=== PATIENT | male | born 1960 | race Caucasian/White ===

== ENCOUNTER 2017-03-11 04:59 | Emergency (ER) | payer MEDICARE ==
[~2017-03-11] VITALS: Ht 177.8 cm; Wt 72.0 kg
[~2017-03-11 04:59] MED LIST: ASPI81TA2 PO; FLUT16SP12 NS; ISOS30TA6 PO; NITR0.4T PO
--- OUTSIDE RECORDS SUMMARY | 2017-03-11 05:03 | XMS REPORT | Continuity of Care Document ---
Author Author [facility] Organization [facility] Address Unknown Phone Unavailable Support Name Relationship Address Phone ANNIEHCRIS VALLE Caregiver [facility] [address] [place] [address] CHRISTIAN DE JESUS MD Caregiver [facility] [address] [place] [address] [address] [place] [address] NIECY PEÑA Next Of Kin [address] [place], [place] [id number] Insurance Providers Payer Name Policy Number Subscriber Name Relationship Medicare [id number] Fred Peña 18 Self Medicaid [id number] Fred Peña 18 Self Advance Directives Directive Response Recorded Date/Time Advanced Directives Type None 12/23/14 1:45pm Problems Medical Problems Problem Onset Date Status Weakness Unknown Active Chest discomfort Unknown Active Diarrhea Unknown Active Gastroenteritis Unknown Active Atypical chest pain Unknown Active Diarrhea Unknown Active Diarrhea Unknown Active Costochondritis Unknown Active Medications Medication Dose Route Sig Days/Qty Instructions Order Date Discontinued Date Status Cyclobenzaprine Hcl 1 06/06/09 09/21/09 Discontinued Meloxicam 15 Mg PO DAILY 06/12/09 09/21/09 Discontinued Oxycodone Hcl 5 Mg PO NEEDED 06/12/09 09/21/09 Discontinued Fluticasone Propionate 16 Gm NS TWICE A DAY 01/16/14 Active Fexofenadine Hcl 180 Mg PO DAILY PRN ALLERY SYMPTOMS 01/16/14 Active Naproxen Sodium 220 Mg PO TWICE DAILY WITH MEALS PRN PAIN 11/27/14 Active Metronidazole 500 Mg PO Q6H/0300,0900,1500,2100 For diarrhea 7 Days 11/08 Active Ibuprofen 1 Tab PO EVERY 6-8 HOURS PRN PAIN 20 Qty 12/23/14 Active Ondansetron 4 Mg PO EVERY 4-6 HOURS For NAUSEA 20 Qty 12/23/14 Active Social History Social History Problem Response Recorded Date/Time Hx Substance Use N RECOVERING NARCOTIC ADDICT 12/23/2014 1:45pm Hx Alcohol Use N RECOVERING ALCOHOLIC 12/23/2014 1:45pm Has the pt used tobacco in the last 12 months No 11/27/2014 2:33pm Tobacco Usage none 01/16/2014 10:37pm Query Response Start Date Stop Date Smoking Status Former smoker Hospital Discharge Instructions No hospital discharge instructions. Plan of Care No plan of care. Functional Status Query Response Date Recorded Physical Hygiene Self December 23, 2014 1:45pm Disabilities None December 23, 2014 1:45pm Devices Used None December 23, 2014 1:45pm Dressing Self December 23, 2014 1:45pm Ambulation Self December 23, 2014 1:45pm Diet Self December 23, 2014 1:45pm Mental Status Alert Oriented December 23, 2014 1:45pm Disabilities None December 23, 2014 1:45pm Devices Used None December 23, 2014 1:45pm Physical Hygiene Self December 23, 2014 1:45pm Dressing Self December 23, 2014 1:45pm Ambulation Self December 23, 2014 1:45pm Diet Self December 23, 2014 1:45pm Allergies, Adverse Reactions, Alerts Allergen Type Severity Reaction Status Last Updated oxycodone HCl Allergy Unknown HALLUCINATIONS Active 12/23/14 Iodinated Contrast Media - IV Dye Allergy Mild RASH Active 12/23/14 Codeine Allergy Intermediate HALLUCINATION Active 12/23/14 Hydrocodone Allergy Intermediate HALLUCINATION Active 12/23/14 Oxycodone Allergy Unknown Active 12/23/14 Acetaminophen Allergy Intermediate HALLUCINATION Active 12/23/14 Latex Allergy Mild RASH Active 12/23/14 Immunizations Name Given Type Hx Influenza Vaccination N PT DOES NOT WANT ONE Historical Hx Pneumococcal Vaccination No Historical Hx Influenza Vaccination N PT DOES NOT WANT ONE Historical Vital Signs Acute Vital Signs Vital Response Date/Time Temperature (Fahrenheit) 97.8 deg F (96.8 - 99.1) Temperature (Calculated Celsius) 36.00571 degrees C (36.0 - 37.3) Pulse Rate (adult) 98 bpm (60 - 100) Respiratory Rate 16 breaths/min (10 - 20) O2 Sat by Pulse Oximetry 98 % (90 - 100) Blood Pressure 110/70 mm Hg Height 5 ft 10 in Weight 176 lb Body Mass Index 25.0 kg/m^2 Results Test Source Date Result Interp. Ref. Range Comments Activated Partial Thromboplast Time December 23, 2014 1:43pm 28.4 SEC N 24- 36 Alanine Aminotransferase (ALT/SGPT) December 23, 2014 1:43pm 21 U/L N 21- 72 Albumin December 23, 2014 1:43pm 5.1 G/DL H 3.5-5.0 Albumin/Globulin Ratio December 23, 2014 1:43pm 1.5 RATIO N 1.1-2.2 Alkaline Phosphatase December 23, 2014 1:43pm 78 U/L N 38-126 Anion Gap December 23, 2014 1:43pm 20 MEQ/L H 5-15 Aspartate Amino Transf (AST/SGOT) December 23, 2014 1:43pm 22 U/L N 17-59 BUN/Creatinine Ratio December 23, 2014 1:43pm 20 RATIO N 6-26 Basophils # (Auto) January 16, 2014 10:15pm 0.0 T/MM3 N 0-0.2 Basophils (%) (Auto) January 16, 2014 10:15pm 0.4 % N 0-2 Blood Urea Nitrogen December 23, 2014 1:43pm 18.0 MG/DL N 9-20 C. difficile Toxin B Gene (PCR) December 23, 2014 2:16pm Negative - If Toxin A is clinically indicated, treat accordingly. Calcium Level December 23, 2014 1:43pm 10.4 MG/DL H 8.4-10.2 Calculated Osmolality December 23, 2014 1:43pm 282 MOSM/KG H 261-280 Carbon Dioxide Level December 23, 2014 1:43pm 20 MEQ/L L 22-30 Chemistry Specimen Hemolysis December 23, 2014 4:27pm < 15 0-25 0-25: No Hemolysis.26-70: Slight Hemolysis - can falsely elevate K and Urine Protein. 71-285: Moderate Hemolysis - can falsely elevate K, Troponin I, CA 19-9, PTH, CSF GLucose, and Urine Protein, and can falsely decrease Phenytoin. 286-999: Gross Hemolysis - can falsely elevate K, Troponin I, CA 19-9, PTH, CSF Glucose, and Urine Protine, and can falsely decrease Phenytoin. Recommend specimen recollection. Chloride Level December 23, 2014 1:43pm 105 MEQ/L N 98-107 Cholesterol Level December 18, 2011 2:40am 153 MG/DL N 132-199 Cholesterol/HDL Ratio December 18, 2011 2:40am 3.9 RATIO N 0-5.0 Conjugated Bilirubin December 17, 2011 8:35pm 0.00 MG/DL N 0.00-0.30 Creatine Kinase MB December 18, 2011 2:15pm 0.5 NG/ML N 0-3.4 Creatinine December 23, 2014 1:43pm 0.9 MG/DL N 0.8-1.5 EKG August 07, 2008 4:00am Complete - Eosinophils # (Auto) January 16, 2014 10:15pm 0.2 T/MM3 N 0-0.5 Eosinophils (%) (Auto) January 16, 2014 10:15pm 1.6 % N 0-4 Globulin December 23, 2014 1:43pm 3.4 G/DL N 2.4-3.6 Glomerular Filtration Rate Calc December 23, 2014 1:43pm 88 - Glucose Level December 23, 2014 1:43pm 125 MG/DL H 75-110 HDL Cholesterol Direct December 18, 2011 2:40am 39 MG/DL L 40-60 Hematocrit December 23, 2014 1:43pm 46.3 % N 41-53 Hemoglobin December 23, 2014 1:43pm 16.3 GM/DL N 13.5-17.5 Icterus Index December 23, 2014 1:43pm < 2 0-7 Immature Granulocyte # (Auto) January 16, 2014 10:15pm 0.02 T/MM3 N 0.00- 0.03 Immature Granulocyte % (Auto) January 16, 2014 10:15pm 0.2 % N 0.0-0.5 LDL Cholesterol, Calculated December 18, 2011 2:40am 102.2 N 66-159 Lymphocytes # (Auto) January 16, 2014 10:15pm 2.9 T/MM3 N 1-4.8 Lymphocytes # (Manual) December 23, 2014 1:43pm 0.3 T/MM3 L 1-4.8 Lymphocytes % (Manual) December 23, 2014 1:43pm 2.0 % L 23-45 Lymphocytes (%) (Auto) January 16, 2014 10:15pm 30.6 % N 23-45 Magnesium Level December 17, 2011 8:35pm 2.1 MG/DL N 1.6-2.3 COMMENT USE BLOOD IN LAB Mean Corpuscular Hemoglobin December 23, 2014 1:43pm 32.0 UUG N 26-34 Mean Corpuscular Hemoglobin Concent December 23, 2014 1:43pm 35.2 GM/DL N 31-37 Mean Corpuscular Volume December 23, 2014 1:43pm 90.8 UM3 N 80-100 Mean Platelet Volume December 23, 2014 1:43pm 9.3 UM3 L 9.4-12.4 Monocytes # (Auto) January 16, 2014 10:15pm 0.8 T/MM3 N 0-0.8 Monocytes # (Manual) December 23, 2014 1:43pm 0.2 T/MM3 N 0-0.8 Monocytes % (Manual) December 23, 2014 1:43pm 1.0 % N 0-9.0 Monocytes (%) (Auto) January 16, 2014 10:15pm 8.4 % N 0-9.0 RZ-Grh-I-Type Natriuretic Peptide December 23, 2014 1:43pm 205 PG/ML H 0- 175 Rule in cut points: <50 years old=450; 50-75 years old=900; >75 years old=1800; When utilizing ProBNP rule-in cut points, adjustment for impaired renal function is typically not required. Neutrophils # (Auto) January 16, 2014 10:15pm 5.6 T/MM3 N 1.8-7.7 Neutrophils # (Manual) December 23, 2014 1:43pm 16.0 T/MM3 H 1.8-7.7 Neutrophils % (Manual) December 23, 2014 1:43pm 97.0 % H 33-66 Neutrophils (%) (Auto) January 16, 2014 10:15pm 58.8 % N 33-66 Platelet Count December 23, 2014 1:43pm 325 T/MM3 N 130-400 Potassium Level December 23, 2014 1:43pm 3.9 MEQ/L N 3.6-5 Prothromb Time International Ratio December 23, 2014 1:43pm 1.04 N 0.81- 1.09 THERAPUTIC RANGE=2.00-3.00 FOR ANTI-THROMBOSIS THERAPUTIC RANGE=2.50- 3.50 FOR IMPLANTED VALVE RDW Standard Deviation December 23, 2014 1:43pm 41.9 FL N 36.9-50.2 Red Blood Count December 23, 2014 1:43pm 5.10 M/MM3 N 4.50-5.90 Sodium Level December 23, 2014 1:43pm 145 MEQ/L H 134-144 Stool Occult Blood December 23, 2014 2:16pm Positive - Stool for White Cells December 23, 2014 2:16pm Negative - Has specimen been collected/obtained? Y Thyroid Stimulating Hormone (TSH) December 17, 2011 8:35pm 1.22 MIU/L N 0.47-4.68 COMMENT USE BLOOD IN LAB Total Bilirubin December 23, 2014 1:43pm 0.90 MG/DL N 0.20-1.30 Total Creatine Kinase December 18, 2011 2:15pm 89 U/L N 55-170 Total Protein December 23, 2014 1:43pm 8.5 G/DL H 6.3-8.2 Triglycerides Level December 18, 2011 2:40am 59 MG/DL N 40-160 Troponin I December 23, 2014 4:27pm < 0.012 ng/ml 0-0.12 Turbidity December 23, 2014 1:43pm < 20 0-20 Unconjugated Bilirubin December 17, 2011 8:35pm 0.00 MG/DL N 0.00-1.10 Urinalysis Comment December 23, 2014 2:00pm Microscopic not ind. - Has specimen been collected/obtained? Y Urine Bacteria August 07, 2008 6:50am Trace - COMMENT CULTURE IF INDICATEDHas specimen been collected/obtained? Y Urine Bilirubin December 23, 2014 2:00pm Negative - Has specimen been collected/obtained? Y Urine Blood December 23, 2014 2:00pm Negative - Has specimen been collected/obtained? Y Urine Collection Type December 23, 2014 2:00pm Voided-not cc-midstr - Has specimen been collected/obtained? Y Urine Color December 23, 2014 2:00pm [place] - Has specimen been collected/obtained? Y Urine Glucose (UA) December 23, 2014 2:00pm Negative - Has specimen been collected/obtained? Y Urine Ketones December 23, 2014 2:00pm Negative - Has specimen been collected/obtained? Y Urine Leukocyte Esterase December 23, 2014 2:00pm Negative - Has specimen been collected/obtained? Y Urine Nitrite December 23, 2014 2:00pm Negative - Has specimen been collected/obtained? Y Urine Protein December 23, 2014 2:00pm Negative - Has specimen been collected/obtained? Y Urine RBC August 07, 2008 6:50am 0-1 /HPF - COMMENT CULTURE IF INDICATEDHas specimen been collected/obtained? Y Urine Specific [place] December 23, 2014 2:00pm >=1.030 H - Has specimen been collected/obtained? Y Urine Squamous Epithelial Cells August 07, 2008 6:50am Few - COMMENT CULTURE IF INDICATEDHas specimen been collected/obtained? Y Urine Turbidity December 23, 2014 2:00pm Clear - Has specimen been collected/obtained? Y Urine Urobilinogen December 23, 2014 2:00pm 0.2 EU/DL - Has specimen been collected/obtained? Y Urine WBC August 07, 2008 6:50am 0-1 /HPF - COMMENT CULTURE IF INDICATEDHas specimen been collected/obtained? Y Urine pH December 23, 2014 2:00pm 5.0 - Has specimen been collected/ obtained? Y VLDL Cholesterol December 18, 2011 2:40am 11.8 MG/DL N 0-28 White Blood Count December 23, 2014 1:43pm 16.5 T/MM3 H 4.5-11.0 Shiga Toxin I & II Stool December 23, 2014 2:03pm Gram Stain Knee, Intraoperative Site-Left August 07, 2008 10:02am Name: FRED PEÑA Unit #: [id number] : [id number] Sex: M Loc / Svc: [place] DOS: 12/03/14 Signed Report #: [id number] DIAGNOSTIC IMAGING REPORT TYPE OF EXAM: CHEST, PA & LATERAL Dictated By: JULY COUGHLIN MD INDICATION: ITS.REASON: V72.83 PRE OP V72.5 CHEST 2-VIEWS UPRIGHT (PA & LAT) COMPARISON: None FINDINGS: The lungs are clear without evidence of focal abnormal airspace opacity. There is no pleural effusion or pneumothorax. Probable tiny calcified granulomas overlying the left midlung zone are stable. The heart size, mediastinal contours and pulmonary vascularity are within normal limits. There is no significant skeletal abnormality. IMPRESSION: No acute cardiopulmonary disease. . Procedures Procedure Status Date Provider(s) MRI JOINT UPR EXTREM W/O DYE completed 11/07/14 CHEST X-RAY 2VW FRONTAL&LATL completed 12/03/14 Encounters Encounter Location Date/Time Departed Emergency Room [facility] 12/23/14 1:25pm Registered Clinic [facility] 12/03/14 12:35pm Registered Clinic [facility] 11/07/14 9:22am Recent Diagnosis
[2017-03-11 05:04] VITALS: Ht 177.8 cm; Wt 72.0 kg
--- NOTE | 2017-03-11 05:15 | NUR ---
PROVIDER DR FIELDS IN ROOM TO SEE PT
--- NOTE | 2017-03-11 05:23 | ERPDOC ---
Departure Disposition Decision Date: March 11, 2017 Disposition Decision Time: 09:24 (TRISHA REAGAN MD) Disposition: 01 DISCHARGED HOME, SELF-CARE Impression Impression () Impression: Primary Impression: Atypical chest pain Severity: Moderate (TRISHA REAGAN MD) Condition: Improved Seen By: Physician only (TRISHA REAGAN MD) Referrals: MIRIAN SALMERON DO (Family) Patient Instructions: Chest Pain (ED) Problems/Meds/Labs Reviewed?: Yes Medications reviewed and manag: Yes (TRISHA REAGAN MD) Additional Instructions: Set up an appointment with your editor producer for stress test. If symptoms worsen, please return to the emergency department. Follow up care ordered?: Yes (TRISHA REAGAN MD) HPI - Chest Pain General Chief Complaint: Chest Pain Stated Complaint: CHEST PAIN Time Seen by Provider: 05:45 Source: patient, EMS Exam Limitations: no limitations (FEBRUARYANTONIA DO) Time Seen by Provider: 06:41 (TRISHA REAGAN MD) HPI - Chest Pain Initial Comments 56yo man presented to the ER by EMS for CP. Pt states that he has been trying to sleep unsuccessfully all night. Variably, he states that he woke up (despite not being able to sleep?) with CP or that he noticed that he had CP after he woke up. Pt took nitro x1 without relief of his sx. Had an MN 1yr ago and a heart cath at that time. Sx present since at least 0100 this AM. Occurred At: home Onset/Timing: Rapid Duration: 4-6 hrs Pain/Severity Scale: Now: 8/10, Worst: 10/10 Activities at Onset/Context: rest Location: substernal Quality: pressure Associated Symptoms: nausea/vomiting Chest Pain Radiation: no radiation Nitro Today/Relief: 0.4 mg x 1, 0.4 mg x 2, provided by ED, provided at home Aspirin Treatment Today: 81 mg x 4, provided by ED Prior Chest Pain/Cardiac Simón: cardiac cath Hx of Similar Symptoms: Yes (FEBRUARYANTONIA DO) Allergies: Coded Allergies: acetaminophen (Verified Allergy, Intermediate, HALLUCINATION, 01/27/16) codeine (Verified Allergy, Intermediate, HALLUCINATION, 01/27/16) hydrocodone (Verified Allergy, Intermediate, HALLUCINATION, 01/27/16) Iodinated Contrast Media - IV Dye (Verified Allergy, Mild, RASH, 01/27/16) latex (Verified Allergy, Mild, RASH, 01/27/16) oxycodone (Verified Allergy, Unknown, 01/27/16) oxycodone HCl (Verified Allergy, Unknown, HALLUCINATIONS, 01/27/16) Viagra/ED med in past 36 hrs: No () Past History Past Medical History Metabolic: hypertension ENMT: allergies Cardiac: MN, angina () Surgical History General: back Cardiac: cardiac cath Joint: knee () Family History Family PMH: FOUND: CHF, COPD, MN, cancer, hypertension () Vaccines Hx Influenza Vaccination: No Hx Pneumococcal Vaccination: No () Social History Substance Use Type: former substance user Marital Status: Sexuality: female partner Current Occupational Status: unemployed () Review of Systems Cardiovascular Cardiac: chest pain, dyspnea on exertion () Physical Exam General General Nourishment: well nourished, well developed, appears stated age, no acute distress, adult, obese General Body Habitus: well groomed () Vitals and Pain First Documented Vital Signs Date Time Temp Pulse Resp B/P Pulse Ox O2 Delivery O2 Flow Rate FiO2 03/11/17 05:04 97.5 76 16 131/72 93 Room Air (TRISHA REAGAN MD) Vitals and Pain Weight: Kilograms: Height (feet): 5 Height (inches): 10.00 Triage Pain Scale: () RN VS reviewed by Provider: Yes () Normal Exams: Head: Normocephalic w/o trauma Eyes: Pupils are PERRLA w/ EOMI, No scleral icterus, irritation ENMT: No facial trauma, nasal exudates, pharyngeal erythema Neck: Full range of motion, without adenopathy, JVD Chest/Resp: Clear all enriquez, with good airflow CV: Regular rate and rhythm, without murmur or gallop, Pulses 2+ all extremities Lymphatic: No lymphadenopathy Musculoskeletal: No tenderness, or deformity noted Integumentary: No rashes, hives, or bruising noted Neurologic: Patient is alert, and oriented () Psychiatric (brief) Psychiatric Brief: FOUND: alert, oriented, NOT FOUND: normal affect (Anxious) ( ) Differential Diagnoses Considering: Acute MN, Anxiety/Panic, Costochondritis, Esophageal Spasm, GERD, Pericarditis, Pleurisy, Pneumothorax, Pneumonia, PSVT, Pulmonary Edema () Progress Results/Orders Orders Procedure Category Date Status Time Cbc W/Auto LAB 03/11/17 Complete Diff-Reflex Manual 05:14 Bmp - Basic Metabolic LAB 03/11/17 Complete Panel 05:14 Probnp LAB 03/11/17 Complete 05:14 Troponin I W LAB 03/11/17 Complete Hemolysis Index 05:14 INR LAB 03/11/17 Complete 05:14 EKG EKG 03/11/17 Taken 05:14 Chest 1 View RAD 03/11/17 Resulted 05:14 Iv Lock (Ed Only) EDM 03/11/17 Transmitted 05:14 Troponin I W LAB 03/11/17 Complete Hemolysis Index 08:00 Ondansetron Inj PHA 03/11/17 Complete (Zofran) 06:45 Lorazepam (Ativan) PHA 03/11/17 Complete 06:45 (TRISHA REAGAN MD) Lab Results Laboratory Tests Test 03/11/17 05:26 03/11/17 07:53 White Blood Count 10.9T/MM3 Red Blood Count 4.50M/MM3 Hemoglobin 14.5GM/DL Hematocrit 41.0% Mean Corpuscular Volume 91.1UM3 Mean Corpuscular Hemoglobin 32.2UUG Mean Corpuscular Hemoglobin Concent 35.4GM/DL RDW Standard Deviation 41.2FL Platelet Count 347T/MM3 Mean Platelet Volume 9.1UM3 Immature Granulocyte % (Auto) 0.3% Neutrophils (%) (Auto) 58.5% Lymphocytes (%) (Auto) 30.2% Monocytes (%) (Auto) 8.2% Eosinophils (%) (Auto) 2.4% Basophils (%) (Auto) 0.4% Absolute Immature Granulocyte (auto 0.03T/MM3 Absolute Neutrophils (auto) 6.4T/MM3 Absolute Lymphocytes (auto) 3.3T/MM3 Absolute Monocytes (auto) 0.9T/MM3 Absolute Eosinophils (auto) 0.3T/MM3 Absolute Basophils (auto) 0.0T/MM3 Prothromb Time International Ratio 1.00 Turbidity < 20 Sodium Level 145MEQ/L Potassium Level 3.3MEQ/L Chloride Level 106MEQ/L Carbon Dioxide Level 25MEQ/L Anion Gap 14MEQ/L Blood Urea Nitrogen 12.0MG/DL Creatinine 0.8MG/DL Glomerular Filtration Rate Calc 100 BUN/Creatinine Ratio 15RATIO Glucose Level 196MG/DL Calculated Osmolality 284MOSM/KG Calcium Level 9.1MG/DL Icterus Index < 2 Troponin I < 0.012ng/ml < 0.012ng/ml AU-Wsl-W-Type Natriuretic Peptide 63PG/ML Chemistry Specimen Hemolysis < 15 < 15 (TRISHA REAGAN MD) Medications Current ED Medications Ondansetron HCl (Zofran) 4 mg O ONCE IV Last administered on 03/11/17 07:00; Start 03/11/17 at 06:45; Stop 03/11/17 at 06:46; Status DC Lorazepam (Ativan) 1 mg O ONCE IV Last administered on 03/11/17 07:03; Start 03/11/17 at 06:45; Stop 03/11/17 at 06:46; Status DC (TRISHA REAGAN MD) Progress Progress Patient had cardiac enzymes drawn and returned at 6 AM as I took over his care. I spoke with him about being discharged, he was very concerned about leaving and wanted to repeat set of enzymes. I think that was reasonable, we did repeat them 2 hours later and they've returned negative as well. At this time he is sleeping comfortably and resting. He is ready to go home, his also feels like he is ready to go home. He will take it easy for the next couple of days as he gets an appointment set up with his editor producer for stress test and evaluation. If pain recurs he can return to the ED for more evaluation. agreed they would call today to set up appointment with cardiology. (TRISHA REAGAN MD) EKG EKG : Rate: <60 Rhythm: sinus [place]: normal QRS: normal Intervals: normal ST/T: normal Interpreted by: signing physician (ANTONIA FIELDS DO) Xray Xray : Xray: CXR Portable Interpretation: Normal, Interpreted by Me (ANTONIA FIELDS DO) ANTONIA FIELDS DO March 11, 2017 05:23 TRISHA REAGAN MD March 11, 2017 08:28
[2017-03-11 05:38] LABS: BASOPHILS % (AUTO) 0.4 % (0-2); EOSINOPHILS # (AUTO) 0.3 T/MM3 (0-0.5); EOSINOPHILS % (AUTO) 2.4 % (0-4); HGB - HEMOGLOBIN 14.5 GM/DL (13.5-17.5); IMMATURE GRANULOCYTE # (AUTO) 0.03 T/MM3 (0.00-0.03); IMMATURE GRANULOCYTE % (AUTO) 0.3 % (0.0-0.5); LYMPHOCYTES # (AUTO) 3.3 T/MM3 (1-4.8); LYMPHOCYTES % (AUTO) 30.2 % (23-45); MEAN CORPUSCULAR HGB 32.2 UUG (26-34); MEAN CORPUSCULAR HGB CONC(MCHC 35.4 GM/DL (31-37); MEAN CORPUSCULAR VOLUME 91.1 UM3 (80-100); MEAN PLATELET VOLUME 9.1 UM3 (9.4-12.4); MONOCYTES # (AUTO) 0.9 T/MM3 (0-0.8); MONOCYTES % (AUTO) 8.2 % (0-9.0); NEUTROPHILS #(AUTO)-ABSOLUTE 6.4 T/MM3 (1.8-7.7); NEUTROPHILS % (AUTO) 58.5 % (33-66); WBC - WHITE BLOOD COUNT 10.9 T/MM3 (4.5-11.0)
[2017-03-11 05:51] LABS: ANION GAP 14 MEQ/L (5-15); BUN/CREATININE RATIO 15 RATIO (6-26); CALCIUM 9.1 MG/DL (8.4-10.2); CHLORIDE 106 MEQ/L (98-107); CO2 - CARBON DIOXIDE 25 MEQ/L (22-30); CREATININE 0.8 MG/DL (0.8-1.5); GLOMERULAR FILTRATION RATE 100; GLUCOSE 196 MG/DL (75-110); POTASSIUM 3.3 MEQ/L (3.6-5); SODIUM 145 MEQ/L (134-144)
--- OUTSIDE RECORDS SUMMARY | 2017-03-11 05:54 | XMS REPORT | Continuity of Care Document ---
Author Author [facility] Organization [facility] Address Unknown Phone Unavailable Support Name Relationship Address Phone ANNIECHRIS VALLE Caregiver [facility] [address] [place] [address] CHRISTIAN DE JESUS MD Caregiver [facility] [address] [place] [address] [address] [place] [address] NIECY PEÑA Next Of Kin [address] [place], [place] [id number] Insurance Providers Payer Name Policy Number Subscriber Name Relationship Medicare [id number] Fred Peña 18 Self Medicaid [id number] Fred Peña 18 Self Advance Directives Directive [...] F (96.8 - 99.1) Temperature (Calculated Celsius) 36.43019 degrees C (36.0 - 37.3) Pulse Rate [...] 16, 2014 10:15pm 8.4 % N 0-9.0 [id number]-Kdr-O-Type Natriuretic Peptide December 23, 2014 1:43pm 205 [...] Y Urine Color December 23, 2014 2:00pm [place] - Has specimen been collected/obtained? Y Urine [...] INDICATEDHas specimen been collected/obtained? Y Urine Specific [place] December 23, 2014 2:00pm >=1.030 H - [...] 2008 10:02am Name: FRED PEÑA Unit #: [id number] : [id number] Sex: M Loc / Svc: [place] DOS: 12/03/14 Signed Report #: [id number] DIAGNOSTIC IMAGING REPORT TYPE OF EXAM: CHEST, [...] Encounters Encounter Location Date/Time Departed Emergency Room [facility] 12/23/14 1:25pm Registered Clinic [facility] 12/03/14 12:35pm Registered Clinic [facility] 11/07/14 9:22am Recent Diagnosis
[2017-03-11 06:04] LABS: PROBNP 63 PG/ML (0-175)
--- NOTE | 2017-03-11 06:20 | NUR ---
DR REAGAN IN
[2017-03-11] MEDS ORDERED: LORAZEPAM 2 MG/ML INJECTION IV ONE (06:45)
[2017-03-11] MEDS ORDERED: ONDANSETRON 4mg/2ml INJECTION IV ONE (06:45)
--- NOTE | 2017-03-11 07:55 | DI ---
Indication: ITS.REASON: Chest pain PROCEDURE: CHEST 1 VIEW: Encounter: Initial Comparison: August 08, 2016 FINDINGS: The lungs are clear. There is no abnormal airspace opacity, pleural effusion or pneumothorax identified. The heart size, pulmonary vasculature and mediastinum are within normal limits. No significant skeletal abnormality is seen. IMPRESSION: No acute cardiopulmonary abnormality. .
[2017-03-11 09:40] VITALS: BP 133/74; PULSE 78; RESP 20; TEMP 97.6; O2SAT 97
--- NOTE | 2017-03-11 09:40 | NUR ---
DISMISSAL AMB. TIRED. NO PAIN
== END 2017-03-11 09:40 | disposition home or self-care (01) ==
LOC: ED 04:59
DX: R07.89 Other chest pain (principal); I25.2 Old myocardial infarction; I10 Essential (primary) hypertension; R11.2 Nausea with vomiting, unspecified
CPT/HCPCS: 36415; 71010; 80048; 83880; 84484; 85025; 85610; 93005; 96374; 96375; 99284; J2060; J2405